=== PATIENT | female | born 1950 | race Caucasian/White ===

== ENCOUNTER 2023-09-22 09:55 | Outpatient (CLI) | payer MEDICARE, BC | END 2023-09-22 23:59 | disposition home or self-care (01) | LOC: RAD 09:55 | PROVIDERS: ATTEND Pediatrics Sports Medicine | DX: M51.17 Intervertebral disc disorders with radiculopathy, lumbosacral region (principal); M47.26 Other spondylosis with radiculopathy, lumbar region; M48.061 Spinal stenosis, lumbar region without neurogenic claudication; K57.30 Diverticulosis of large intestine without perforation or abscess without bleeding; M43.17 Spondylolisthesis, lumbosacral region; M54.50 Low back pain, unspecified | CPT/HCPCS: 72131 ==

== ENCOUNTER 2024-10-24 13:24 | Outpatient (CLI) | payer MEDICARE, BC ==
--- NOTE | 2024-10-24 16:16 | RADIOLOGY REPORT ---
CLINICAL INFORMATION: 73 years old, Female; PAIN IN LEFT SHOULDER. TECHNIQUE: Multisequence multiplanar MRI images of the left shoulder were obtained without contrast . COMPARISON: None FINDINGS: Acromioclavicular joint: Postsurgical changes of prior distal clavicle excision likely acromioplasty. Moderate fluid in the subacromial / subdeltoid bursa. Rotator cuff tendons: Moderate tendinosis of the distal supraspinatus and infraspinatus tendons. Smal l thin interstitial tears of the insertional footprint of the supraspinatus and infraspinatus tendons . Mild tendinosis of the distal subscapularis tendon with mild articular surface fraying small thin i nterstitial tear just proximal to its insertion. Biceps tendon: Tendinosis of the proximal long head biceps tendon. Suspected longitudinal split tear of the proximal aspect of the bicipital groove. Mild tenosynovitis. Labrum: No labral tear identified. Bones: No fracture or focal marrow contusion. Moderate arthritic changes of the glenohumeral joint. Muscles: Normal muscle bulk. No atrophy. Other: Small glenohumeral joint effusion. IMPRESSION: 1. Rotator cuff tendinosis with small partial-thickness interstitial tears of the distal supraspinatu s, infraspinatus, and subscapularis tendons. No full-thickness or near full-thickness tear. 2. Moderate subacromial/ subdeltoid bursitis. 3. Postsurgical changes of prior distal clavicle excision likely acromioplasty. 4. Tendinosis of the proximal long head biceps tendon with suspected small partial-thickness longitud inal split tear of the proximal aspect of the bicipital groove. 5. Additional findings as detailed above.
== END 2024-10-24 23:59 | disposition home or self-care (01) ==
LOC: MRI02 13:24
PROVIDERS: ATTEND Orthopaedic Surgery
DX: S46.012A Strain of muscle(s) and tendon(s) of the rotator cuff of left shoulder, initial encounter (principal); M25.512 Pain in left shoulder; X58.XXXA Exposure to other specified factors, initial encounter; Y93.9 Activity, unspecified; Y92.89 Other specified places as the place of occurrence of the external cause; Y99.8 Other external cause status; M75.22 Bicipital tendinitis, left shoulder
CPT/HCPCS: 73221